=== PATIENT | male | born 1955 | race Caucasian/White ===

== ENCOUNTER 2018-12-04 06:30 | Day surgery (SDC) | payer OTHER ==
[2018-12-04] MEDS ORDERED: DESFLURANE 15 MIN (07:00)
[2018-12-04] MEDS ORDERED: PROPOFOL 200 MG INJ (07:00)
[2018-12-04] MEDS ORDERED: CIPROFLOXACIN 400MG/D5W 200 ML IVPB (09:00)
[2018-12-04] MEDS ORDERED: ETOMIDATE 20 MG INJ (10:54)
[2018-12-04] MEDS ORDERED: LIDOCAINE 2% (SDV) 5 ML INJ (10:54)
[2018-12-04] MEDS ORDERED: FENTAnyl 50 MCG/ML VIAL (10:55)
[2018-12-04] MEDS ORDERED: MIDAZOLAM 1 MG/ML 2 ML INJ (10:55)
[2018-12-04] MEDS ORDERED: DIPHENHYDRAMINE 50 MG INJ IV (11:00)
[2018-12-04] MEDS ORDERED: LABETALOL HCL 20MG INJ IV (11:00)
[2018-12-04] MEDS ORDERED: ONDANSETRON 4 MG INJ IV (11:00)
[2018-12-04] MEDS ORDERED: MEPERIDINE 25 MG INJ IV (11:00)
[2018-12-04] MEDS ORDERED: HYDROmorphONE 1 MG/5 ML IV SYRINGE IV (11:00)
[2018-12-04] MEDS ORDERED: OXYCODONE/ACETAMINOPHEN (5/325) TAB PO ×2 (11:00)
[2018-12-04] MEDS ORDERED: CIPROFLOXACIN 400MG/D5W 200 ML (11:02)
[2018-12-04] MEDS ORDERED: ONDANSETRON 4 MG INJ (11:06)
[2018-12-04] MEDS: HYDROmorphONE 1 MG/5 ML IV SYRINGE IV (12:24)
[2018-12-04] MEDS: hydrALAzine 20 MG INJ IV (12:36)
== END 2018-12-04 14:41 | disposition home or self-care (01) ==
LOC: SDS 06:30
DX: N20.0 Calculus of kidney (principal); N40.0 Benign prostatic hyperplasia without lower urinary tract symptoms; N35.919 Unspecified urethral stricture, male, unspecified site
CPT/HCPCS: 52317; 88300